=== PATIENT | female | born 1965 | race Caucasian/White ===

== ENCOUNTER 2018-04-01 19:20 | Emergency (ER) | payer SELFPAY ==
[~2018-04-01] VITALS: Ht 165.1 cm; Wt 77.0 kg
[~2018-04-01 19:20] MED LIST: INSU100V3 IJ; NPH,100V SQ
[2018-04-01 20:01] VITALS: BP 157/66
== END 2018-04-02 02:17 | disposition left against medical advice (07) ==
LOC: ER 19:20
DX: R10.9 Unspecified abdominal pain (principal); Z53.21 Procedure and treatment not carried out due to patient leaving prior to being seen by health care provider